=== PATIENT | female | born 1945 | race Caucasian/White ===

== ENCOUNTER 2019-05-29 01:54 | Inpatient (IN) ==
[2019-05-29] MEDS ORDERED: VANCOMYCIN 1 GM/NS 1 GM/250 ML IVPB IV ONE (02:54)
[2019-05-29] MEDS ORDERED: ZOSYN 4.5 GM in NS 100 ML IV ONE (02:54)
--- NOTE | 2019-05-29 02:58 | PROVIDER DOCUMENTATION ---
HPI-General Adult - General Chief Complaint: General Adult Stated Complaint: general Time Seen by Provider: 05/29/19 02:11 Source: patient, skilled nursing records Allergies/Adverse Reactions: Patient Allergies Allergy/AdvReac Type Severity Reaction Status Date / Time cefuroxime [From Ceftin] Allergy RASH Verified 05/29/19 02:18 Home Medications: Home Medication List Medication Instructions Recorded Confirmed Last Taken Type Alendronate Sodium [Fosamax] 70 mg PO QAM 05/29/19 05/29/19 Unknown History Calcium Carbonate 648 mg PO Q6HR 05/29/19 05/29/19 Unknown History Cholecalciferol (Vit D3) [Vitamin 2,000 units PO QAM 05/29/19 05/29/19 Unknown History D3] Codeine/Promethazine HCl 5 ml PO BID PRN 05/29/19 05/29/19 Unknown History [Promethazine-Codeine Syrup] Lactobac Cmb #3/Fos/Pantethine 1 cap PO QAM 05/29/19 05/29/19 Unknown History [Probiotic & Acidophilus Cap] Metformin HCl [Glucophage] 1,000 mg PO BID 05/29/19 05/29/19 Unknown History Metoprolol [Lopressor] 50 mg PO DAILY 05/29/19 05/29/19 Unknown History Mupirocin Cream [Bactroban Cream] 1 applicatn TOP QSHIFT 05/29/19 05/29/19 Unknown History Omeprazole [Prilosec] 20 mg PO DAILY@0700 05/29/19 05/29/19 Unknown History Phenobarbital 32.4 mg PO Q6HR 05/29/19 05/29/19 Unknown History Phenytoin [Dilantin] 100 mg PO QAM 05/29/19 05/29/19 Unknown History Phenytoin [Dilantin] 100 mg PO QHS 05/29/19 05/29/19 Unknown History Potassium Chloride E.r. [Klor-Con] 20 meq PO QAM 05/29/19 05/29/19 Unknown History Rosuvastatin Calcium [Crestor] 5 mg PO QPM 05/29/19 05/29/19 Unknown History Sertraline [Zoloft] 25 mg PO DAILY 05/29/19 05/29/19 Unknown History Terbinafine HCl 1% Cream [Lamisil 1 applicatn TOP TID PRN 05/29/19 05/29/19 Unknown History 1% Cream] - History of Present Illness -Gen Adult Nature of Presenting Problems: Presents to the EC from [facility] with back abscess. [facility] states that this has been chronic but they have been caring for it. Nurse who normally cares for it has been off for 2 days and when she returned it appeared worse so they decided to send her to the ED. Denies any fever. Patient is at baseline mental status per [facility]. No family at bedside. Unable to obtain history from patient due to h/o MR and dementia. She only states that her back is hurting her. She is holding her baby doll. Review of Systems - Adult - REVIEW OF SYSTEMS - ADULT ROS:: limited due to MR and dementia Constitutional: reports: see HPI Eyes: reports: see HPI Ears, Nose, Mouth & Throat: reports: see HPI Cardiovascular: reports: see HPI Respiratory: reports: see HPI Gastrointestinal: reports: see HPI Genitourinary: reports: see HPI Musculoskeletal: reports: see HPI Integumentary: reports: see HPI Neurological: reports: see HPI Psychiatric: reports: see HPI Endocrine: reports: see HPI Hematologic/Lymphatic: reports: see HPI Allergic/Immunologic: reports: see HPI All Other Systems: Reviewed and Negative Past History - Adult - PAST MEDICAL HISTORY-ADULT Review of Records: reports: Old Records Reviewed Physical Exam-General - PHYSICAL EXAM-ADULT Initial Vital Signs Reviewed: Yes - CONSTITUTIONAL General Appearance: alert, no apparent distress, obese - EYES Eyes: other (missing left eye, well healed) - HEAD, EARS, NOSE, MOUTH & THROAT HENMT: normocephalic/atraumatic - NECK Neck: full range of motion, supple, normal inspection - RESPIRATORY Respiratory: chest non-tender, lungs clear, normal breath sounds, no respiratory distress, no accessory muscle use - CARDIOVASCULAR Cardiovascular: normal peripheral pulses, regular rate, rhythm, no murmur - GASTROINTESTINAL (ABDOMEN) Abdominal Exam: normal bowel sounds, non tender, soft. negative: distended - MUSCULOSKELETAL Back Exam: other (see skin exam) Extremity: normal range of motion, non-tender, normal inspection, no pedal edema - SKIN Integumentary: warm/dry, pallor, other ([id number] abscess with surrounding cellulits, induration and 4x4cm area of central necrosis) - NEUROLOGIC Neurologic: grossly normal - PSYCHIATRIC Psych/Mental Status: disoriented x 3 (baseline mental status per NH, h/o MR) Progress - PLAN OF CARE/RESULTS Progress/Plan/Lab Results: Vital Signs - 8 hr 05/29/19 01:58 Temperature 98.3 F Pulse Rate 84 Respiratory Rate 18 Blood Pressure 90/65 O2 Sat by Pulse Oximetry 95 Orders Category Date Time Status BLOOD CULTURE [BLDCUL] Stat Lab 05/29/19 02:39 Uncollected CBC WITH ELECTRONIC DIFF [HEME] Stat Lab 05/29/19 02:39 Uncollected COMPREHENSIVE METABOLIC PANEL [CHEM] Stat Lab 05/29/19 02:39 Uncollected LACTATE, PLASMA [CHEM] Stat Lab 05/29/19 02:39 Uncollected WOUND CULTURE INC GRAM STAIN [RM] Stat Lab 05/29/19 02:[address] Ricardo police liaison officer for hospitalist who accepted patient for admission. Ok with Vanc and Zosyn. Likely needs surgery consult as it possibly needs washout due to size and area of necrosis. Further orders to be placed by hospitalist team. - CONSULTS/PCP/HOSPITALIST Notification #1 *Consult/PCP/Hospitalist*: Dr Ricardo Time Discussed: 02:56 Consult Disposition: Admit Departure - Departure Date of Disposition Decision: 05/29/19 Time of Disposition Decision: 02:56 DIAGNOSIS: Back abscess Disposition: ADMITTED INPATIENT 09 Certified Medical Emergency: Emergent Condition: Stable Referrals and Follow-Ups: None,PCP [Primary Care Provider] - - Critical Care Note This patient required my direct & personal management of CC.: No Attestation - Physician/ YUMIKO Attestation Patient care was provided by Advanced Practice Provider:: No The physician spent face to face time with patient:: Yes Advanced Practice Provider documentation review:: Supervising physician onsite and consulted in the evaluation and care of this patient. The physician did have a face to face encounter with the patient.
[2019-05-29 03:12] LABS: BASO# 0.03 X1000 (0.0-0.2); BASO% 0.2 % (0.0-0.8); EOS# 0.06 X1000 (0.0-0.7); EOS% 0.4 % (0.0-10.0); HEMATOCRIT 31.2 % (37.0-47.0); HEMOGLOBIN 9.6 g/dL (12.0-16.0); IMM GRAN# 0.05 X1000 (0.0-0.04); IMM GRAN% 0.3 % (0.0-0.5); LYMPH% 14.2 % (20.5-51.1); MCH 24.7 PG (27-31); MCHC 30.8 g/dL (33-37); MCV 80.4 FL (81-99); MONO# 1.22 X1000 (0.11-0.59); MONO% 7.5 % (1.7-9.3); MPV 10.4 FL (7.4-10.4); NEUT# 12.52 X1000 (1.4-6.5); NEUT% 77.4 % (42.2-75.2); PLT 286 X1000 (130-400); RBC 3.88 XMIL (4.2-5.4); WBC 16.18 X1000 (4.8-10.8)
[2019-05-29 03:51] LABS: AGAP 14; ALB/GLOB RATIO 0.8; ALKALINE PHOSPHATASE 77 U/L (32-104); BUN 8 mg/dL (8-22); CALCIUM 9.3 mg/dL (8.8-10.2); CHLORIDE 95 mmol/L (98-107); COSMO 268; CREATININE 0.3 mg/dL (0.5-0.9); ESTIMATED GFR > 60; GLUCOSE 117 mg/dL (70-104); GOT 16 U/L (10-30); GPT < 5 U/L (10-36); POTASSIUM 3.7 mmol/L (3.5-5.1); SODIUM 134 mmol/L (136-145); TCO2 25 mmol/L (25-35); TOTAL BILIRUBIN 0.28 mg/dL (0.20-1.00); TOTAL PROTEIN 6.6 g/dL (6.3-8.3)
[2019-05-29] MEDS ORDERED: ZOFRAN IV PRN (05:20)
[2019-05-29] MEDS ORDERED: TYLENOL PO PRN (05:25)
[2019-05-29] MEDS ORDERED: VANCOMYCIN IV PER PHARMACY MISC SCH (05:30)
[2019-05-29 05:59] LABS: INR 1.17; PROTIME 15.1 Seconds (11.0-16.0)
[2019-05-29 06:00] LABS: PTT 43.8 Seconds (22.3-41.8)
[2019-05-29] MEDS: PRILOSEC PO SCH (06:15)
[2019-05-29 06:18] LABS: HEMOGLOBIN A1C 5.5 % (4.8-6.0)
[2019-05-29] MEDS: NS 1,000 ML IV SCH (06:26)
[2019-05-29] MEDS: HUMULIN R SUBQ SCH ×4 (06:58→20:34)
[2019-05-29] MEDS ORDERED: VANCOMYCIN 600 MG in NS 150 ML IV ONE (07:00)
[2019-05-29] MEDS ORDERED: CALMOSEPTINE OINTMENT TOP PRN ×2 (07:15→10:30)
[2019-05-29] MEDS ORDERED: MAGNESIUM SULFATE 2 GM/S.W.I. 2 GM/50 ML IVPB IV ONE (07:18)
--- NOTE | 2019-05-29 08:38 | HISTORY AND PHYSICAL ---
PRIMARY CARE PROVIDER: Dr. Tong. CHIEF COMPLAINT: Back abscess. HISTORY OF PRESENT ILLNESS: Ms. Fountain is a 73-year-old female who does have a history of cerebral palsy, seizure disorder, diabetes mellitus type 2, and hypertensive heart disease. She is a long time resident at [facility] in [place], [place]. The patient does have a reported intellectual disability, though was able to answer most questions related to history of present illness and review of systems. According to skilled nursing report, they have previously been treating the patient's abscess on her right midback. They have been, from what I understand, treating and watching this since 05/16/2019, though the nurse did note tonight that the patient's wound did look worse, that it was swollen, red, has had purulent drainage, and was tender to touch. The patient is reporting pain in her back in this area. At this time, she has not had any known reported fever, and the patient denies any known fever, body aches, or chills. She denies any headache, dizziness, chest pain, shortness of breath, or cough. She denies any abdominal pain, nausea, vomiting, or diarrhea. She denies any dysuria. She denies any pain, numbness, tingling, or swelling in the extremities. The only symptom that she is reporting at this time is that her back hurts where the abscess it is, and this worsens when she lays and puts pressure on it. The patient, as noted above, does have cerebral palsy and documented history of intellectual disability, though was able to answer simple questions and follow commands. She is alert and oriented to person and place, though not time. She did not know what month it was. Upon evaluation in the ER, the patient was noted to have leukocytosis with a white blood cell count of 16,180. The patient does have an approximately the diameter of a softball sized abscess noted on her mid right back. This area is warm to the touch, was erythematous. The patient did report tenderness upon palpation. Though, there was no purulent drainage noted at the time of my assessment, the ER nurse did note that there had previously been purulent drainage that they did obtain a wound culture of. The patient's abscess/wound did have a very foul odor noted. Given this finding, the patient likely does need to be admitted for a surgical consult for possible incision and drainage of her large abscess. Blood cultures and wound culture have been obtained. She has been placed on antibiotics of Zosyn and vancomycin. She will be placed inpatient for admission. REVIEW OF SYSTEMS: A 14-point review of systems was conducted with the patient. All were negative, except for pertinent positives mentioned in the above HPI. PAST MEDICAL HISTORY: 1. Seizure disorder. 2. Cardiomegaly. 3. Obesity. 4. Peptic ulcer disease. 5. Cataract. 6. Glaucoma. 7. History of intellectual disability. 8. Anxiety. 9. Peripheral vascular disease. 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 The patient is status post removal of her left eye, though for what reason is uncertain. 11. Hypertensive heart disease with heart failure. 12. Major depressive disorder. 13. Hyperlipidemia. 14. Diabetes mellitus type 2. PAST SURGICAL HISTORY: At this time, the only known surgery that the patient has had is removal of her left eye. SOCIAL HISTORY: The patient is a long-time resident at [facility] in [place], [place]. She reports that she is not able to walk, that she does get around via wheelchair. She has no known history of tobacco, alcohol, or illicit drug use. FAMILY HISTORY: Unable to be obtained at this time due to the patient's current mentation. ALLERGIES: The patient has allergies to Ceftin. HOME MEDICATIONS: 1. Fosamax 70 mg p.o. every a.m. 2. Calcium carbonate 648 mg p.o. every 6 hours. 3. Vitamin D3, 2000 units p.o. every a.m. 4. Promethazine - codeine syrup 5 mL p.o. b.i.d. p.r.n. 5. Probiotic and acidophilus capsule, 1 capsule p.o. every a.m. 6. Glucophage 1000 mg p.o. b.i.d. 7. Lopressor 50 mg p.o. daily. 8. Bactroban cream 1 application topically every shift. 9. Prilosec 20 mg p.o. daily. 10. Phenobarbital 32.4 mg p.o. every 6 hours. 11. Dilantin 100 mg p.o. every a.m. 12. Dilantin 200 mg p.o. at bedtime. 13. Potassium chloride extended-release 20 mEq p.o. every a.m. 14. Crestor 5 mg p.o. every p.m. 15. Zoloft 25 mg p.o. daily. 16. Lamisil cream 1 application topically t.i.d. p.r.n. DIAGNOSTIC DATA: White blood cell count is 16,180, hemoglobin 9.6, hematocrit 31.2, platelet count is 286,000. PT 15.1, INR 1.17, PTT is 43.8. Sodium 134, potassium 3.7, chloride 95, serum bicarbonate is 25, BUN 8, creatinine 0.3, with a GFR of greater than 60, glucose 117, calcium 9.3. Magnesium was 1.1. Liver function tests are within normal limits. Plasma lactate was 3.6. Total Dilantin level was 8.5. PHYSICAL EXAMINATION: VITAL SIGNS: Temperature 98.4 degrees, heart rate 82, respirations 16, blood pressure is 115/69, with a MAP of 77, oxygen saturation is 95% per nasal cannula at 2 L. GENERAL: Ms. Fountain is a pleasant, 73-year-old, female. She was resting in the ER stretcher. She was in no acute distress. She was awake and alert, able to answer simple questions and follow commands. HEENT: Head is atraumatic, normocephalic, except for the patient does have noted a left eye abnormality. She has had her left eye removed, though the right pupil was 3 mm, round, and reactive to light. Oral mucosa is slightly dry. Oropharynx was clear. NECK: Supple. Trachea midline. CARDIOVASCULAR: The patient has S1, S2 present. No murmurs, gallops, rubs appreciated, with a regular rate and rhythm. PULMONARY: The patient has symmetrical chest expansion bilaterally. Lung sounds are clear to auscultation in bilateral full anderson. ABDOMEN: Soft, nontender, does not appear to be distended, though the patient does have a protuberant abdomen noted. Bowel sounds are present in all 4 quadrants and were normoactive. EXTREMITIES: No cyanosis or edema noted. Pulse, motor, and sensory is intact in all extremities, though the patient does have abnormalities noted to bilateral feet. They do appear to be contracted, and possibly with some degree of footdrop noted bilaterally. Radial and pedal pulses were 2+ bilaterally. INTEGUMENTARY: The patient's skin is pink, warm, and dry. She does have, on her right midback, an area that is approximately the diameter of a softball sized abscess. There is a centralized area on the abscess that does appear blackish in color. Though there was no drainage noted at the time of my assessment, this was noted by the ER nurse to previously have purulent drainage. The area is swollen, erythematous, and was tender to palpation. NEUROLOGICAL: The patient is alert and oriented to person, place, though not time. She did not know what month it was. She does have a history of cerebral palsy and intellectual disabilities, though at this time, there does not appear to be any new acute neurological deficits. ASSESSMENT AND PLAN: 1. Right midback abscess. For further evaluation of this, we have obtained blood culture and wound culture. The patient has been placed on antibiotics of vancomycin and Zosyn. We will provide some as needed pain medication as well. We have placed a consult with Surgery with Dr. Lagunas for possible need for incision and drainage of her abscess. We will await Surgery evaluation and further recommendations for management. Until the patient is evaluated by Surgery, we will keep her nothing by mouth. 2. Leukocytosis. This is likely secondary to her above-mentioned abscess. Will continue with treatment as mentioned above. 3. History of cerebral palsy. Aware. 4. Seizure disorder. Will continue her Dilantin and phenobarbital. 5. Diabetes mellitus type 2. We are holding the patient's Glucophage at this time. She will be placed on a sliding scale regular insulin. Will do pattern fingerstick blood sugars. 6. History of hypertensive heart disease. At this time, the patient's blood pressure is borderline low, though she is maintaining adequate mean arterial pressures at this time, though given this, we will hold her metoprolol. We will implement some gentle intravenous fluid hydration, and monitor her blood pressure closely with every 4 hour vital signs. 7. Hypomagnesemia. We have ordered for the patient to receive magnesium sulfate 2 grams intravenously. We will recheck a BMP and magnesium later on today. 8. Deep vein thrombosis prophylaxis will be provided with sequential compression devices. The patient has been placed on the surgical floor with telemetry. She will have vital signs every 4 hours. Do strict intake and output, incentive spirometry. The patient does not wear home oxygen, though in the emergency room, she was noted to be 90% on room air. Given this, we will go ahead and obtain a chest x-ray for further evaluation. Will await these results, and continue to follow. Further orders and recommendations pending hospital course, diagnostic studies, and physician evaluation. Dictated by EUGENIA Mae for Pipo Ricardo MD cc: MD Prasad Kendall MD
[2019-05-29] MEDS ORDERED: LOPRESSOR PO SCH (09:00)
[2019-05-29] MEDS: CULTURELLE PO SCH (09:09)
[2019-05-29] MEDS: DILANTIN PO SCH ×2 (09:09→23:03)
[2019-05-29] MEDS: PHENOBARBITAL PO SCH ×3 (09:10→23:03)
[2019-05-29] MEDS: ZOSYN 3.375 GM in NS 50 ML IV SCH ×3 (09:10→23:01)
[2019-05-29] MEDS: ZOLOFT PO SCH (09:10)
--- NOTE | 2019-05-29 09:51 | PROGRESS NOTE ---
DATE: 05/29/2019 Ms. Fountain is admitted with an abscess in the right middle back. She is on IV vancomycin and Zosyn. A surgical consult was asked last night by the ER hospitalist with Dr. Lagunas. She will be seen by him later on. cc: Prasad Tong MD
--- NOTE | 2019-05-29 10:04 | Diag Imaging Result Doc PS360 ---
EXAM: CHEST-PORTABLE HISTORY: Mild Hypoxia TECHNIQUE: Chest single view COMPARISON: None. FINDINGS: Poor inspiratory effort. The heart is mildly prominent. The vessels are not distended. There are no infiltrates. Possible small left effusion. IMPRESSION: Poor inspiratory effort with mildly prominent heart and questionable tiny left pleural effusion. Follow-up PA and lateral recommended. Electronically signed by Hesham Carlisle 05/29/2019 10:01 AM
--- NOTE | 2019-05-29 10:08 | GENERAL SURGERY CONSULTATION ---
DATE: 05/29/2019 REQUESTING PHYSICIAN: Hospitalist. REASON FOR CONSULTATION: Back abscess. HISTORY OF PRESENT ILLNESS: A 73-year-old female with a history of cerebral palsy, seizure disorder, diabetes mellitus type 2, and hypertensive heart disease, who is normally a resident in [facility], who has been having issues with swelling and redness with purulent drainage from her midback. Apparently, this has been going on since 05/16/2019. She does not seem to respond to most of my questions, but she did at least follow commands. She was seen in the emergency department and noted to have this wound. There was some attempt at a culture, although I do not see anything actively draining, but there is fluctuance in the area and some eschar noted over the wound. I was asked to weigh an opinion. PAST MEDICAL HISTORY: Includes seizure disorder, cardiomegaly, obesity, peptic ulcer disease, history of intellectual disability, glaucoma, anxiety, peripheral vascular disease, left eye blindness, hypertensive heart disease with heart failure, major depressive disorder, hyperlipidemia, diabetes mellitus, cataract surgery. PAST SURGICAL HISTORY: Includes previous surgery on her left eye. SOCIAL HISTORY: Lives at [facility] in [place]. FAMILY HISTORY: Unable to obtain secondary to the patient's current mentation. ALLERGIES: Ceftin. HOME MEDICATIONS: Reviewed. REVIEW OF SYSTEMS: Difficult to obtain secondary to the patient's mental status. PHYSICAL EXAMINATION: Vital Signs: The patient is currently afebrile. Her vital signs are stable. General: No acute distress. Interactive, female. Looks stated age. HEENT: Normocephalic, atraumatic. Previous surgery on her left eye noted. Mucous membranes moist. Oropharynx benign. Neck: Supple. Trachea midline. Cardiovascular: Regular rate and rhythm. Lungs: Grossly clear. Abdomen: Soft, nontender, nondistended. Extremities: Moves all extremities. Skin: Wound to the back noted. There is eschar over it. There is a foul smell. Associated erythema, some potential fluctuance, tenderness to palpation. Neurologic: Baseline intellectual disabilities, but follows commands. Vascular: All extremities perfused. LABORATORY DATA: White blood count 16, hematocrit 31, platelet count 286,000. Remainder of labs were reviewed. IMAGING: None. ASSESSMENT AND PLAN: A 73-year-old female with back abscess. Back abscess. At this time, we will plan on incision and drainage. May need to debride the wound somewhat. Will plan on doing this in the operating room given the patient's mental capability and probably inability to tolerate this at the bedside. Will try to obtain consent, and try to do this today. cc: MD Prasad Rabago MD
[2019-05-29] MEDS ORDERED: DIPRIVAN 1% ONE (11:00)
[2019-05-29] MEDS ORDERED: TORADOL ONE (11:08)
--- NOTE | 2019-05-29 11:16 | EKG Report ---
Test Performed on : 05/29/2019 10:59:35 AM Test Reason : PT IN OR HOLDING ROOM Blood Pressure : / mmHG Vent. Rate : 094 BPM Atrial Rate : 094 BPM P-R Int : 128 ms QRS Dur : 082 ms QT Int : 334 ms P-R-T Axes : 059 005 -34 degrees QTc Int : 417 ms Sinus rhythm. with premature supraventricular complexes. Nonspecific T wave abnormality Abnormal ECG No previous ECGs available Confirmed by Moncho MEDINA, Nicola Pagan ([id number]) on 05/29/2019 1:18:48 PM
[2019-05-29] MEDS ORDERED: OFIRMEV 1000 MG/ISOTONIC SOLN 1,000 MG/100 ML BOTTLE ONE (11:17)
--- NOTE | 2019-05-29 14:23 | OPERATIVE NOTE ---
PROCEDURE DATE: 05/29/2019 PREOPERATIVE DIAGNOSIS: Back abscess. POSTOPERATIVE DIAGNOSIS: Back abscess. PROCEDURES: 1. Incision and drainage of back abscess. 2. Debridement of skin, subcutaneous tissue, and muscle, approximately 15 square centimeters. SURGEON: Wyatt Nathan MD. CIGARETTE MACHINE FILLER: None. ANESTHESIA: General tracheal. OPERATIVE FINDINGS: Purulence and skin and muscle for a total surface area of 15 square centimeters. The wound itself measured 3 x 5 cm of the skin and tunneled in all directions. COMPLICATIONS: None at the time of this dictation. ESTIMATED BLOOD LOSS: 5 mL. SPECIMENS REMOVED: Culture. BRIEF HISTORY: A 73-year-old female with a mental impairment who had a back abscess. [place] that she would benefit from drainage. The risks, benefits, and alternatives were discussed with the caregiver. All questions answered. DESCRIPTION OF PROCEDURE: After informed consent was obtained, patient brought to the operative theatre, transferred to the operative table, and placed in the supine position. General endotracheal anesthesia was then performed without complication. The patient was repositioned to have her back up. We prepped and draped the back in sterile fashion. After the time-out, confirming patient, date, and procedure, we turned our attention to the back abscess. With a 15 blade I was able to open into the area of dependence. We encountered a significant amount of purulence which we expressed out and drained. We increased the size of the incision and removed all the old eschar which approximately opened the wound to be 3 x 5 cm. Once we had done this, we expressed all the purulence. We irrigated out the wound. We had to debride some skin, subcutaneous tissue, and muscle. We did this sharply and excised the tissue. Once we had done this, we have irrigated the whole cavity. I felt that she would benefit from placement of wet-to-dry dressing for right now and then subsequently will probably need a wound VAC, but we placed Vashe soaked gauze to the wound and placed a sterile dressing. The patient tolerated the procedure well. She will need dressing changes frequently during the day. cc: MD Prasad Rabago MD [facility]
[2019-05-29 21:12] LABS: AGAP 12; BUN 6 mg/dL (8-22); CALCIUM 8.7 mg/dL (8.8-10.2); CHLORIDE 97 mmol/L (98-107); COSMO 270; CREATININE 0.3 mg/dL (0.5-0.9); ESTIMATED GFR > 60; GLUCOSE 135 mg/dL (70-104); POTASSIUM 3.2 mmol/L (3.5-5.1); SODIUM 135 mmol/L (136-145); TCO2 26 mmol/L (25-35)
[2019-05-30] MEDS: NS 1,000 ML IV SCH (00:16)
[2019-05-30] MEDS: PHENOBARBITAL PO SCH ×4 (05:30→20:50)
[2019-05-30] MEDS: ZOSYN 3.375 GM in NS 50 ML IV SCH ×4 (05:30→20:50)
[2019-05-30] MEDS: PRILOSEC PO SCH ×2 (05:31→06:10)
[2019-05-30] MEDS: HUMULIN R SUBQ SCH ×4 (06:27→20:50)
[2019-05-30 06:48] LABS: BASO# 0.02 X1000 (0.0-0.2); BASO% 0.2 % (0.0-0.8); EOS# 0.24 X1000 (0.0-0.7); EOS% 2.6 % (0.0-10.0); IMM GRAN# 0.04 X1000 (0.0-0.04); IMM GRAN% 0.4 % (0.0-0.5); LYMPH# 1.26 X1000 (1.2-3.4); LYMPH% 13.8 % (20.5-51.1); MCH 24.6 PG (27-31); MONO# 0.59 X1000 (0.11-0.59); MONO% 6.5 % (1.7-9.3); MPV 10.5 FL (7.4-10.4); NEUT# 6.96 X1000 (1.4-6.5); NEUT% 76.5 % (42.2-75.2); PLT 279 X1000 (130-400); RBC 3.66 XMIL (4.2-5.4); RDW 19.3 % (11.5-14.5); WBC 9.11 X1000 (4.8-10.8)
[2019-05-30 07:35] LABS: AGAP 10; ALB/GLOB RATIO 0.8; ALBUMIN 2.7 g/dL (3.5-5.0); ALKALINE PHOSPHATASE 78 U/L (32-104); BUN 4 mg/dL (8-22); CALCIUM 8.5 mg/dL (8.8-10.2); CHLORIDE 97 mmol/L (98-107); COSMO 262; CREATININE 0.3 mg/dL (0.5-0.9); ESTIMATED GFR > 60; GLUCOSE 117 mg/dL (70-104); GOT 13 U/L (10-30); GPT < 5 U/L (10-36); MAGNESIUM 1.5 mg/dL (1.5-2.7); POTASSIUM 2.7 mmol/L (3.5-5.1); SODIUM 132 mmol/L (136-145); TCO2 25 mmol/L (25-35); TOTAL BILIRUBIN 0.19 mg/dL (0.20-1.00)
--- NOTE | 2019-05-30 08:05 | GENERAL SURGERY PROGRESS NOTE ---
DATE: 05/30/2019 SUBJECTIVE: Patient seems to be doing okay. Nursing staff reports no major issues. They did change her dressing. OBJECTIVE: Vital Signs: Patient is currently afebrile. Her vital signs are stable. General: No acute distress. Cardiovascular: Regular rate and rhythm. Lungs: Grossly clear. Abdomen: Soft. Nontender and nondistended. Back: Dressing intact, still with a foul smell. ASSESSMENT AND PLAN: A 73-year-old female status post drainage of back abscess. Postoperative state at this time. The patient seems to be doing okay. We will continue wet-to- dry dressing changes. May need to consider wound VAC in the near future once we kind of get the smell improved, but she could go back to an LTAC and have local wound care. cc: MD Prasad Rabago MD
[2019-05-30] MEDS: DILANTIN PO SCH ×2 (08:41→20:50)
[2019-05-30] MEDS: CULTURELLE PO SCH (08:41)
[2019-05-30] MEDS: ZOLOFT PO SCH (08:41)
[2019-05-30] MEDS: D5 1/2 NS + KCL 30 MEQ 1,000 ML IV SCH (08:41)
--- NOTE | 2019-05-30 09:06 | PROGRESS NOTE ---
DATE: 05/30/2019 Ms. Fountain had incision and drainage of the abscess done yesterday. She is still weak. Potassium is still low. White count has come down from 16.18 to 9.11. Potassium is 2.7. Blood sugar is 117. We are repeating the values today. Her prealbumin level was also low. She is on a diabetic diet now. Overall condition is unchanged. We will continue with the current antibiotics. Microbiology reveals gram-negative ángel from the abscess and the wound. Blood cultures have been negative so far. cc: Prasad Tong MD
[2019-05-30 09:53] LABS: HEMOGLOBIN A1C 4.7 % (4.8-6.0)
[2019-05-30] MEDS: NORCO-5 PO PRN (10:14)
[2019-05-30] MEDS: VANCOMYCIN 1,400 MG in NS 250 ML IV SCH (18:33)
[2019-05-30] MEDS ORDERED: IMODIUM PO PRN (19:54)
[2019-05-31] MEDS: D5 1/2 NS + KCL 30 MEQ 1,000 ML IV SCH ×3 (01:30→23:02)
[2019-05-31] MEDS: PHENOBARBITAL PO SCH ×4 (03:01→23:04)
[2019-05-31] MEDS: ZOSYN 3.375 GM in NS 50 ML IV SCH ×4 (03:01→23:01)
[2019-05-31] MEDS: PRILOSEC PO SCH (06:06)
--- NOTE | 2019-05-31 06:07 | GENERAL SURGERY PROGRESS NOTE ---
DATE: 05/31/2019 SUBJECTIVE: Patient seems to be doing about the same. OBJECTIVE: Vital Signs: Patient is currently afebrile. Her vital signs are stable. General: No acute distress. Cardiovascular: Regular rate and rhythm. Lungs: Grossly clear. Abdomen: Soft, nontender, nondistended. Back: Wound with dressing intact. Smell has decreased. MICROBIOLOGY: shows gram-negative rods although no further speciation. Clostridium difficile toxin was negative. LABORATORY: White blood cell count yesterday was reviewed and white count has trended down to 9. ASSESSMENT/PLAN: A 73-year-old female status post incision and drainage of back abscess. Postoperative state. At this time, patient seems to be doing well after drainage. White blood cell count is decreasing. We will wait on further speciation of the bacteria but we could transition to oral antibiotics and local wound care at her facility. cc: MD Prasad Rabago MD
[2019-05-31] MEDS: HUMULIN R SUBQ SCH ×4 (06:58→23:05)
[2019-05-31 07:44] LABS: AGAP 10; BUN 3 mg/dL (8-22); CALCIUM 7.6 mg/dL (8.8-10.2); CHLORIDE 104 mmol/L (98-107); COSMO 277; CREATININE 0.3 mg/dL (0.5-0.9); ESTIMATED GFR > 60; GLUCOSE 148 mg/dL (70-104); SODIUM 139 mmol/L (136-145); TCO2 25 mmol/L (25-35)
[2019-05-31] MEDS: ZOLOFT PO SCH (08:19)
[2019-05-31] MEDS: DILANTIN PO SCH ×2 (08:19→23:04)
[2019-05-31] MEDS: CULTURELLE PO SCH (08:19)
--- NOTE | 2019-05-31 09:10 | PROGRESS NOTE ---
DATE: 05/31/2019 Ms. Fountain's culture and sensitivity from the abscess grew Proteus mirabilis, which is supposed to be sensitive to piperacillin, which she is on. She is also on IV vancomycin. Will continue with the current management. Her rash around the left eyeball has almost disappeared now. Will continue with the current management on her. -0 cc: Prasad Tong MD
[2019-05-31] MEDS: NORCO-5 PO PRN (15:02)
[2019-06-01] MEDS: ZOSYN 3.375 GM in NS 50 ML IV SCH (04:41)
[2019-06-01] MEDS: PRILOSEC PO SCH (06:11)
[2019-06-01] MEDS: VANCOMYCIN 1,400 MG in NS 250 ML IV SCH (06:11)
[2019-06-01] MEDS: PHENOBARBITAL PO SCH ×4 (06:13→20:41)
[2019-06-01] MEDS: HUMULIN R SUBQ SCH ×4 (06:57→21:30)
--- NOTE | 2019-06-01 08:10 | GENERAL SURGERY PROGRESS NOTE ---
DATE: 06/01/2019 SUBJECTIVE: Patient seems to be doing okay. OBJECTIVE: Vital Signs: Patient is currently afebrile. Her vital signs are stable. General: No acute distress. HEENT: Normocephalic, atraumatic. Pupils equal, round, and reactive to light. Mucous membranes moist. Oropharynx benign. Neck: Supple. Trachea midline. Cardiovascular: Regular rate and rhythm. Lungs: Grossly clear. Abdomen: Soft, nontender, and nondistended. Back: Wound with dressing intact. Overall improving. Microbiology shows Proteus in the wound, which is sensitive to Augmentin. ASSESSMENT AND PLAN: A 74-year-old female status post incision and drainage of back abscess. Back abscess at this time, she can likely be transitioned over to p.o. antibiotics. We will defer to her primary care physician on this. Hopefully, she can be discharged here pretty soon. cc: MD Prasad Rabago MD
--- NOTE | 2019-06-01 09:04 | PROGRESS NOTE ---
DATE: 06/01/2019 Ms. Fountain is doing better. Her culture grew Proteus mirabilis, sensitive to amoxicillin. We will try to put her on Augmentin if we can at 500 mg 3 times a day as well as IV antibiotics. -2 cc: Prasad Tong MD
[2019-06-01] MEDS: CULTURELLE PO SCH (09:40)
[2019-06-01] MEDS: ZOLOFT PO SCH (09:40)
[2019-06-01] MEDS: DILANTIN PO SCH ×2 (09:41→20:41)
[2019-06-01] MEDS: AUGMENTIN PO SCH ×2 (13:43→20:41)
[2019-06-01] MEDS: D5 1/2 NS + KCL 30 MEQ 1,000 ML IV SCH ×2 (16:48→19:47)
[2019-06-02] MEDS: PHENOBARBITAL PO SCH ×2 (01:34→08:13)
[2019-06-02] MEDS: D5 1/2 NS + KCL 30 MEQ 1,000 ML IV SCH (05:08)
[2019-06-02] MEDS: AUGMENTIN PO SCH (05:20)
[2019-06-02] MEDS: PRILOSEC PO SCH ×2 (05:20→06:47)
--- NOTE | 2019-06-02 05:59 | GENERAL SURGERY PROGRESS NOTE ---
DATE: 06/02/2019 SUBJECTIVE: Patient seems to be doing okay. OBJECTIVE: Vital Signs: Patient is currently afebrile. Her vital signs are stable. General: No acute distress. Cardiovascular: Regular rate and rhythm. Lungs: Grossly clear. Abdomen: Soft, nontender, and nondistended. Extremities: Moves all extremities. Neurologic: Grossly intact. Skin: Wound on back is reviewed. It seems to be healing well. Is less slough, more granulation tissue. No foul smell. LABORATORY: None this morning. MICROBIOLOGY: Shows Proteus in the wound and Bacteroides. ASSESSMENT AND PLAN: A 73-year-old female with back abscess. Back abscess. After drainage, patient seems to be doing better. We will continue local wound care. I think there have been arrangements for her to be discharged, and I agree with that. I will need to see her back likely [facility] for follow-up cc: MD Prasad Rabago MD
[2019-06-02] MEDS: HUMULIN R SUBQ SCH ×2 (06:46→11:08)
[2019-06-02] MEDS: CULTURELLE PO SCH (08:13)
[2019-06-02] MEDS: DILANTIN PO SCH (08:13)
[2019-06-02] MEDS: ZOLOFT PO SCH (08:13)
--- NOTE | 2019-06-02 11:43 | PROGRESS NOTE ---
DATE: 06/02/2019 Ms. Fountain is doing better. She is afebrile. She has Bacteroides fragilis and Proteus mirabilis isolated from the abscess culture. She was seen by Dr. Nathan today. She has tolerated the Augmentin well. We are going to continue that, and she is going to be followed by [facility] I think in about 3 weeks. In the [facility] -1 cc: Prasad Tong MD
[2019-06-02 11:50] VITALS: BP 120/70
--- NOTE | 2019-06-02 12:10 | DISCHARGE SUMMARY ---
ADMISSION DATE: 05/29/2019 DISCHARGE DATE: 06/02/2019 HISTORY AND HOSPITAL COURSE: Ms. Fountain was admitted for a large abscess on her back. She has a known case of cerebral palsy, seizure disorder, diabetes, hypertension, enucleation of the left eye. She had a general surgery consultation with Dr. Nathan who decided to do the incision and drainage on her that was performed the next day and postoperative course was unremarkable. She was treated with IV vancomycin as well as Zosyn and she has improved significantly. There is very minimal drainage from the abscess. She will be transferred to [facility]. We decided to put her on Augmentin 500 mg 500 mg every 8 hours, which will be continued for about 7 days. We will do the wound dressing daily and after 3 weeks, she will be seeing the [facility] [place] under Dr. Wyatt Nathan. FINAL DIAGNOSIS: Abscess, right scapular region with Proteus mirabilis and Bacteroides fragilis. DISPOSITION: She will be discharged today to [facility] and I will follow her there. cc: Prasad Tong MD
== END 2019-06-02 13:35 | DRG 581 ==
LOC: SUPCPDRO → ED 01:54 → 4N 04:45 → SUATTDRO 04:45 → 4N 08:20
PROVIDERS: ADMIT Internal Medicine; ATTEND Internal Medicine